=== PATIENT | female | born 1935 | race Caucasian/White ===

== ENCOUNTER 2024-08-27 18:26 | Emergency (ER) | payer MEDICARE, OTHER ==
[~2024-08-27] VITALS: Ht 160 cm; Wt 54.6 kg
--- NOTE | 2024-08-27 19:51 | DVH ---
EXAM: XY L ELBOW 3 VIEW XRAY CLINICAL HISTORY: INJURY FALL COMPARISON: None TECHNIQUE: XY L ELBOW 3 VIEW XRAY Findings/Impression: 3 views of the left elbow. There is no evidence of an acute fracture, dislocation, blastic, or lytic lesions. No radiopaque foreign bodies. Mild soft tissue edema.
[2024-08-27 21:12] VITALS: BP 129/60; TEMP 98
[2024-08-27 21:14] VITALS: PULSE 74; RESP 12; O2SAT 95
--- NOTE | 2024-08-27 21:25 | ED.PDOC ---
Back pain HPI HPI Comments 88 y/o F presents with c/o left-elbow pain, swelling, and bruising s/p fall injury, today. Patient endorses on having a mechanical fall, earlier, at home, where she fell and hit her left-elbow against her bathroom's door frame. She reports no prior symptoms or injuries to incident along with any further relevant or pertient information. Patient denies having any additional current injuries, numbness, tingling, or other associated symptoms or modifiers at this time. Chief Complaint: Upper Extremity Time Seen by MD: 18:58 Primary Care Provider: SHERIDAN Reviewed Notes: Nurses Notes, Medications, Allergies Allergies: Coded Allergies: NO KNOWN ALLERGIES (Unverified , 08/27/24) Information Source: Patient Mode of Arrival: Ambulatory Timing: Minutes Duration: Since onset Severity: Moderate Prehospital treatment: None Quality: Other (see HPI) Onset: Fall, Blunt Trauma Circumstance: Other (mechanical slip and fall ) History of: Other (see HPI) Modifying Factors: Movement Associated signs and symptoms: None Past Medical History PAST MEDICAL HISTORY: Thyroid Surgical History: Denies all surgeries CORPORATE TAX MANAGER History: Denies all CORPORATE TAX MANAGER Hx Family History Family History: Unknown Social History Smoker: Non-Smoker Alcohol: Denies ETOH Use Drugs: Denies Drug Use Lives In: Home Musculoskeletal: reports: others (left-elbow pain and swelling ) Integumetry: reports: bruises (left elbow ) All Other Systems: Reviewed and Negative (negative unless otherwise stated above or in HPI) Physical Exam General Appearance: No Apparent Distress, Normal HEENT: Normal ENT Inspection, Pharynx Normal, TMs Normal Neck: Full Range of Motion, Non-Tender, Normal, Normal Inspection Respiratory: Chest Non-Tender, Lungs Clear, No Accessory Muscle Use, No Respiratory Distress, Normal Breath Sounds Cardiovascular: No Edema, No JVD, No Murmur, No Gallop, Normal Peripheral Pulses, Regular Rate/Rhythm Breast Exam: Deferred Gastrointestinal: No Organomegaly, Non Tender, No Pulsatile Mass, Normal Bowel Sounds, Soft Genitalia: Deferred Pelvic: Deferred Rectal: Deferred Extremities: No calf tenderness, Normal capillary refill, Normal range of motion, No pedal edema, Swelling (trace edema to left elbow) Musculoskeletal : Apperance: Normal Neurologic: Alert, die barber II-XII nml as Tested, No Motor Deficits, Normal Affect, Normal Mood, No Sensory Deficits Cerebellar Function: Normal Reflexes: Normal Skin: Bruises (echymosis to left elbow ), Dry, Normal Color, Warm Lymphatic: No Adenopathy Was a procedure done? Was a procedure done?: No Back Pain Differential Dx Differential Diagnosis: Fracture, Musculoskeletal Pain, Other (bruising, contusions) X-Ray, Labs, Meds, VS Vital Signs Date Time Temp Pulse Resp B/P (MAP) Pulse Ox O2 Delivery O2 Flow Rate FiO2 08/27/24 21:14 74 12 95 Room Air 08/27/24 21:12 98.0 74 12 129/60 (83) 95 98.0 08/27/24 18:48 98.5 86 18 117/41 (66) [address] [address] Ph: [phone] DIAGNOSTIC IMAGING Diagnostic Imaging Report : [id number] Signed PATIENT: ABBY WYMAN ACCT: [id number] UNIT: [id number] : 1935 LOC: ER ROOM / BED: / AGE / SEX: 88 / F ADM STATUS: REG ER SERVICE 54 ORDERING PHYSICIAN: KALANI EDUARDO PROCEDURE(s): LELB3 - L ELBOW 3 VIEW XRAY REASON: INJURY FALL ORDER NUMBER(s): [id number], ACCESSION NUMBER(s): [id number] EXAM: XY L ELBOW 3 VIEW XRAY CLINICAL HISTORY: INJURY FALL COMPARISON: None TECHNIQUE: XY L ELBOW 3 VIEW XRAY Findings/Impression: 3 views of the left elbow. There is no evidence of an acute fracture, dislocation, blastic, or lytic lesions. No radiopaque foreign bodies. Mild soft tissue edema. ATED BY: VANDA CHINO DO DICTATED DATE/TIME: 08/27/241948 SIGNED BY: VANDA CHINO DO SIGNED DATE/TIME: 08/27/241948 CC: X-Ray, Labs, Meds, VS Comment Elbow x-ray shows no acute findings or osseous lesions requesting discharge at this time. Advised rice. Counter Tylenol or Motrin as needed for the pain per labeled dosing instructions follow up with your PCP in 2-3 days as necessary ER return precautions given patient indicates understanding agrees with discharge plan of care. Time of 1ST Reevaluation: 20:28 Reevaluation 1ST: Improved Patient Education/Counseling: Diagnosis, Treatment, Prognosis, Need For Follow Up Family Education/Counseling: No Family Present Departure 1 Departure Time of Disposition: 21:49 Impression: Primary Impression: Left elbow contusion Qualified Codes: S50.02XA - Contusion of left elbow, initial encounter Disposition: HOME / SELF CARE / HOMELESS Condition: Stable Discharged With: Self Critical Care Note Critical Care Time?: No Stability Stability form required: No Heart Score Heart Score: Heart Score Response (Comments) Value History N/A 0 EKG N/A 0 Age N/A 0 Risk Factors N/A 0 Troponin N/A 0 Total 0 I personally scribed for ER ([email or web address]) on 08/27/24 at 21:48. Electronically submitted by Edi Dodd ([email or web address]). KALANI EDUARDO [employer] Aug 27, 2024 21:25 ER Aug 27, 2024 21:48
== END 2024-08-27 22:17 | disposition home or self-care (01) ==
LOC: ER 18:35
DX: S50.02XA Contusion of left elbow, initial encounter (principal); E03.9 Hypothyroidism, unspecified; W18.39XA Other fall on same level, initial encounter; Y93.89 Activity, other specified; Y92.89 Other specified places as the place of occurrence of the external cause; Y99.8 Other external cause status
CPT/HCPCS: 73080